=== PATIENT | female | born 1950 | race Caucasian/White ===

== ENCOUNTER 2018-09-03 14:29 | Outpatient (RCR) | payer MEDICARE, OTHER | END 2018-09-10 | disposition home or self-care (01) | LOC: WCC 14:29 | DX: T81.89XA Other complications of procedures, not elsewhere classified, initial encounter (principal); Y83.9 Surgical procedure, unspecified as the cause of abnormal reaction of the patient, or of later complication, without mention of misadventure at the time of the procedure; E03.9 Hypothyroidism, unspecified | CPT/HCPCS: G0463 ==

== ENCOUNTER 2018-09-03 15:38 | Outpatient (RCR) | payer SELFPAY | END 2018-09-10 | disposition still patient (30) | LOC: WCC 15:38 | DX: T81.89XA Other complications of procedures, not elsewhere classified, initial encounter (principal); Y83.9 Surgical procedure, unspecified as the cause of abnormal reaction of the patient, or of later complication, without mention of misadventure at the time of the procedure; E03.9 Hypothyroidism, unspecified | CPT/HCPCS: G0277 ×3 ==